=== PATIENT | female | born 1995 | race African-American/Black ===

== ENCOUNTER 2019-04-07 04:07 | Emergency (ER) | payer BC, OTHER ==
[~2019-04-07] VITALS: Ht 170.2 cm; Wt 97.7 kg
[2019-04-07] MEDS ORDERED: ALBU8HFA IH (04:17)
[2019-04-07] MEDS ORDERED: ADV100 IH (04:17)
[2019-04-07] MEDS ORDERED: CEPHALEXIN MONOHYDRATE 500 MG CAPSULE PO ONE (05:45)
[2019-04-07] MEDS ORDERED: DOXYCYCLINE HYCLATE 100 MG CAPSULE PO ONE (05:45)
[2019-04-07] MEDS ORDERED: BUPIVACAINE HCL/PF 0.25% 10 ML VIAL INJ ONE (05:45)
[2019-04-07] MEDS ORDERED: LIDOCAINE 1% 10 ML VIAL INJ ONE (06:15)
[2019-04-07] MEDS ORDERED: ONDANSETRON HCL 4 MG TABLET PO ONE (06:30)
[2019-04-07 06:31] VITALS: BP 136/78
== END 2019-04-07 06:57 | disposition home or self-care (01) ==
LOC: EMS 04:09
DX: N76.4 Abscess of vulva (principal); J45.909 Unspecified asthma, uncomplicated
CPT/HCPCS: 56405; 99284; J3490 ×2; Q0162